=== PATIENT | male | born 1970 | race Caucasian/White ===

== ENCOUNTER 2018-09-10 19:28 | Emergency (ER) | payer OTHER ==
[~2018-09-10] VITALS: Ht 175.3 cm; Wt 104.3 kg
[~2018-09-10 19:28] MED LIST: HYDROCODON-ACE1 EAC9; NEXIUM40 MG; VICODIN PO
[2018-09-10 19:52] LABS: ABSOLUTE EOSINOPHILS 0.3 thou/uL (0.0-0.7); ABSOLUTE LYMPHOCYTES 3.3 thou/uL (0.8-5.3); ABSOLUTE MONOCYTES 0.7 thou/uL (0.0-1.2); ABSOLUTE NEUTROPHILS 3.5 thou/uL (1.6-8.1); BASOPHILS 0.6 %; EOSINOPHILS 3.3 %; HEMATOCRIT 46.3 % (42.0-52.0); LYMPHOCYTES 42.7 %; MCH 30.6 pg (26.0-34.0); MCHC 34.6 g/dL (28.0-37.0); MCV 88.5 fL (80.0-100.0); MONOCYTES 9.2 %; MPV 7.3 fl. (7.2-11.1); NUCLEATED RBCS 0 /100WBC; PLATELET COUNT* 316 thou/uL (150-400); POLYS 44.2 %; RBC 5.23 mil/uL (4.50-6.00); RDW-CV 13.8 % (10.5-14.5); WBC 7.8 thou/uL (4.0-11.0)
[2018-09-10 20:00] LABS: ANION GAP 14 mmol/L (7-16); BUN 16 mg/dL (7-18); CALCIUM 8.9 mg/dL (8.5-10.1); CHLORIDE 103 mmol/L (98-107); CO2 26 mmol/L (21-32); CREATININE 1.2 mg/dL (0.6-1.3); GLUCOSE 97 mg/dL (70-99); POTASSIUM 3.9 mmol/L (3.5-5.1); SODIUM 143 mmol/L (136-145)
[2018-09-10 20:09] LABS: APTT 29.9 Seconds (25.0-31.3); PROTIME 9.8 Seconds (9.20-11.50)
[2018-09-10 20:15] LABS: ALBUMIN 4.1 g/dL (3.4-5.0); ALKALINE PHOSPHATASE 69 U/L (46-116); CK-MB MASS 0.8 ng/mL (<0.5-3.6); LIPASE 117 U/L (73-393); MAGNESIUM 2.2 mg/dL (1.8-2.4); NT-PRO BRAIN NAT PEPTIDE 19 pg/mL (<300); SGOT 26 U/L (15-37); SGPT 51 U/L (30-65); TOTAL BILIRUBIN 0.4 mg/dL (<0.1-1.0); TOTAL PROTEIN 7.7 g/dL (6.4-8.2); TROPONIN-I LEVEL <0.06 ng/mL (<0.06)
[2018-09-10 20:59] VITALS: BP 146/80
--- NOTE | 2018-09-12 14:36 | EKG ---
[place] [address] ELECTROCARDIOGRAM REPORT Name: AILYN WEBB [id number] Admission: 09/10/18 Attend Phys: Discharge: 09/10/18 Date of : 74 Report #: [id number] THIS REPORT FOR: //name// ED Test Date: 2018-09-10 Test Time: 19:38:57 Pat Name: AILYN WEBB Department: Room: Gender: M [employer]: : 1970 Requested By: Kota Wu Order Number: [id number] Reading MD: Acosta Mendez Measurements Intervals [place] Rate: 76 P: 38 OK: 178 QRS: -14 QRSD: 89 T: 22 QT: 360 QTc: 405 Interpretive Statements Sinus rhythm Probable left atrial enlargement Abnormal R-wave progression, early transition Left ventricular hypertrophy No previous ECG available for comparison Electronically Signed On 09-12-2018 14:36:37 CDT by Acosta Mendez [email or web address] <ELECTRONICALLY SIGNED> By: Acosta Mendez MD, [facility] 09/12/18 1436 1938 1938 Acosta Mendez MD, FACC /EPI
== END 2018-09-10 21:08 | disposition home or self-care (01) ==
LOC: M.ERS 19:28
PROVIDERS: Family Medicine
DX: R07.89 Other chest pain (principal); F10.129 Alcohol abuse with intoxication, unspecified; K21.9 Gastro-esophageal reflux disease without esophagitis; Z90.49 Acquired absence of other specified parts of digestive tract; Z98.52 Vasectomy status; Y90.0 Blood alcohol level of less than 20 mg/100 ml